=== PATIENT | male | born 1940 | race Caucasian/White ===

== ENCOUNTER → 2016-12-03 | Outpatient (CLI) | payer MEDICARE, OTHER ==
[~2016-12-03] MED LIST: ACLI400A2 INH; ALBU18HF INH; ALBU8.5H5 INH; ASPI-496 PO; ASPI-621 PO; ATOR-2 PO; ATOR80TA PO; CARV3.1212 PO; CARV6.252 PO; CHOL20002 PO; DIGO125T PO; DOCU-131 PO; DOCU100T3 PO; ENOX100S5 SQ; FLUT1DIS3 INH; FURO-92 PO; GABA300C10 PO; HYDR-3237 PO; HYDR-3241 PO; IPRA3AMP NPPB; LISI-167 PO; LISI5TAB7 PO; METO25TA35 PO; NICO-487 TD; OMEP-110 PO; OXYC20TA42 PO; PANT40TA3 PO; POLY17PO5 PO; PROC10TA PO; PROCHLORPERAZINE PO; SPIR25TA PO; TEMA15CA6 PO; WARF2.5T73 PO; WARF2TAB7 PO; WARF3TAB7 PO; WARF5TAB7 PO; WARFARIN PO; ZOLP10TA5 PO
== END | disposition home or self-care (01) ==
LOC: CFH 12:33
PROVIDERS: ATTEND Internal Medicine Cardiovascular Disease
DX: I08.3 Combined rheumatic disorders of mitral, aortic and tricuspid valves (principal); I77.819 Aortic ectasia, unspecified site; I48.91 Unspecified atrial fibrillation; I25.5 Ischemic cardiomyopathy; I10 Essential (primary) hypertension; E78.5 Hyperlipidemia, unspecified; I25.2 Old myocardial infarction; Z95.0 Presence of cardiac pacemaker; Z95.5 Presence of coronary angioplasty implant and graft; F17.210 Nicotine dependence, cigarettes, uncomplicated; Z79.01 Long term (current) use of anticoagulants
CPT/HCPCS: 93306